=== PATIENT | male | born 1970 | race Caucasian/White ===

== ENCOUNTER 2016-07-30 12:52 | Emergency (ER) | payer OTHER ==
[2016-07-30] MEDS ORDERED: SODIUM CHLORIDE 0.9% 500 ML IV STA (13:03)
[2016-07-30] MEDS ORDERED: SODIUM CHLORIDE 0.9% 1,000 ML IV STA (13:03)
--- NOTE | 2016-07-30 13:07 | ED ---
Chest Pain HPI - General Stated Complaint: Chest Pain Time Seen by Provider: 07/30/16 12:52 Source: patient, EMS, RN notes reviewed Mode of arrival: EMS - History of Present Illness Initial Comments: This is a 46-year-old male with a history of a spontaneous pneumothorax in the past who states he quit smoking 15 years ago but still drinks 6-7 beers per day who is brought in by EMS for evaluation of the onset this morning about 8 AM of left-sided chest pain. Was described as being sharp stabbing but also throbbing in nature. He also complains of some left facial pain and left neck pain and numbness in the same area going down his left arm. He was given nitroglycerin as well as aspirin per EMS he has some relief in the pain from -05/19. He also has some blurry vision in his left eye with this. No reports of fevers chills nausea vomiting sweats no recent trauma that he did have a fall this past winter which she was evaluated at [facility] for. He denies any rhinorrhea cough sore throat earaches. He denies any focal weakness. Patient does also complain of sinus congestion again no fevers chills or sweats MD Complaint: chest pain, other - Related Data Home Medications Medication Instructions Recorded Confirmed Albuterol Inhaler [Ventolin Hfa 2 puff INHALATION RT-Q6H PRN 07/30/16 07/30/16 Inhaler] Aspirin 325 mg PO DAILY 07/30/16 07/30/16 Previous Rx's Medication Instructions Recorded Amoxicillin 500 mg PO Q8H #21 capsule 07/30/16 Ibuprofen [Motrin] 800 mg PO Q6HR PRN #20 tab 07/30/16 Magnesium 200 mg PO DAILY #14 tablet 07/30/16 Allergies Allergy/AdvReac Type Severity Reaction Status Date / Time No Known Allergies Allergy Verified 07/30/16 13:07 Review of Systems ROS Statement: Those systems with pertinent positive or pertinent negative responses have been documented in the HPI. ROS Other: All systems not noted in ROS Statement are negative. EKG Findings - EKG Results: EKG: interpreted by SURYA, sinus rhythm (EKG shows normal sinus rhythm of 77 IA interval 144 QRS duration 80 QT/QTC of 384/4:30 for this is a normal-appearing EKG), normal axis, normal QRS, normal ST/T, no acute changes General Exam - General Exam Comments Initial Comments: This is a well-developed well-nourished awake alert male he is a 3 General appearance: alert, anxious Head exam: Present: atraumatic, normocephalic, normal inspection Eye exam: Present: normal appearance, PERRL, EOMI. Absent: scleral icterus, conjunctival injection, periorbital swelling ENT exam: Present: mucous membranes moist, other (Boggy swollen nasal mucosa some tenderness over the left maxillary sinus) Neck exam: Present: normal inspection, tenderness (Tenderness over the left paraspinous muscles and left trapezius musculature.). Absent: meningismus, lymphadenopathy Respiratory exam: Present: normal lung sounds bilaterally, chest wall tenderness (Some tenderness palpation of left chest wall). Absent: respiratory distress, wheezes, rales, rhonchi, stridor Cardiovascular Exam: Present: regular rate, normal rhythm, normal heart sounds. Absent: systolic murmur, diastolic murmur, rubs, gallop, clicks GI/Abdominal exam: Present: soft, normal bowel sounds. Absent: distended, tenderness, guarding, rebound, rigid Extremities exam: Present: normal inspection, full ROM, normal capillary refill , other (Patient does demonstrate a fine tremor to both upper extremities.). Absent: tenderness, pedal edema, joint swelling, calf tenderness Back exam: Present: normal inspection Neurological exam: Present: alert, oriented X3, CN II-XII intact Psychiatric exam: Present: normal affect, normal mood Skin exam: Present: warm, dry, intact, normal color. 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 Patient's presentation is consistent with musculoskeletal pain also sinusitis patient be placed on appropriate medication he was informed his magnesium is at the low end of normal I will also place patient on a short course of magnesium supplement. Disposition Clinical Impression: Musculoskeletal pain, Chest wall pain, Sinusitis Disposition: HOME SELF-CARE Condition: Good Instructions: Costochondritis (ED), Musculoskeletal Pain (ED), Sinusitis (ED) Prescriptions: Amoxicillin 500 mg PO Q8H #21 capsule Ibuprofen [Motrin] 800 mg PO Q6HR PRN #20 tab PRN Reason: Pain Magnesium 200 mg PO DAILY #14 tablet
[2016-07-30 13:40] LABS: Basophils # (A) 0.1 k/uL (0-0.2); Basophils % (A) 1 %; CH 32.4; CHCM 34.5; Eosinophils # (A) 0.3 k/uL (0-0.7); Eosinophils % (A) 2 %; HCT 42.4 % (39.0-53.0); HDW 2.58; HGB 14.5 gm/dL (13.0-17.5); Luc # (Auto) 0.12; Luc % (Auto) 1; Lymphocytes % (A) 9 %; MCH 32.2 pg (25.0-35.0); MCHC 34.1 g/dL (31.0-37.0); MCV 94.5 fL (80.0-100.0); Mean Platelet Volume 6.3; Monocytes # (A) 0.4 k/uL (0-1.0); Monocytes % (A) 4 %; Neutrophils # (A) 9.2 k/uL (1.3-7.7); Neutrophils % (A) 83 %; RBC 4.48 m/uL (4.30-5.90); RDW 12.2 % (11.5-15.5); WBC (Perox) 11.07
[2016-07-30 13:45] LABS: ALT 33 U/L (21-72); AST 25 U/L (17-59); Alcohol <10 mg/dL; Alkaline Phosphatase 64 U/L (38-126); Amylase 103 U/L (30-110); Anion Gap 9 mmol/L; Blood Urea Nitrogen 16 mg/dL (9-20); Calcium 8.7 mg/dL (8.4-10.2); Carbon Dioxide 25 mmol/L (22-30); Chloride 108 mmol/L (98-107); Glucose 101 mg/dL (74-99); Magnesium 1.6 mg/dL (1.6-2.3); Non-African American GFR(MDRD) >60 (>60 ml/min/1.73 sqM); Potassium 4.9 mmol/L (3.5-5.1); Sodium 142 mmol/L (137-145); Total Bilirubin 0.8 mg/dL (0.2-1.3); Total Protein 7.1 g/dL (6.3-8.2)
--- NOTE | 2016-07-30 13:54 | XR ---
EXAMINATION TYPE: XR chest 2V DATE OF EXAM: 07/30/2016 1:47 PM COMPARISON: NONE HISTORY: History of left pneumothorax. Cough. TECHNIQUE: Frontal and lateral views of the chest are obtained. FINDINGS: There is no focal air space opacity, pleural effusion, or pneumothorax seen. There is pul monary hyperinflation with flattening of the diaphragms, biapical lucency, and tapering of the pulmon kailyn vascularity, compatible with underlying COPD. The cardiac silhouette size is within normal limits . The osseous structures are intact although there are central osteophytes and intervertebral disc space narrowing of the visualized thoracic spine. IMPRESSION: Radiographic sequela of COPD. No focal consolidation.
--- NOTE | 2016-07-30 14:01 | CT ---
EXAMINATION TYPE: CT brain maneine wo con DATE OF EXAM: 07/30/2016 1:47 PM COMPARISON: NONE HISTORY: Left sided facial numbness, chest pain CT DLP: 1298.1 mGycm. Automated Exposure Control for Dose Reduction was Utilized. TECHNIQUE: CT scan of the head and cervical spine are performed without contrast. FINDINGS: There is no acute intracranial hemorrhage, mass effect, or midline shift identified. The ventricles and sulci are within normal limits in size. The globes are intact and the visualized sin uses are clear. Mild mucosal thickening is evident within the ethmoid sinus. The remaining paranasal sinuses and mastoid air cells are well aerated. Cervical spine is visualized in its entirety from C1 through upper thoracic levels and demonstrates s atisfactory alignment without evidence of acute fracture or dislocation. Prevertebral soft tissue ap pears within normal limits. The C1-C2 articulation is unremarkable. Incidental noted is made of elkin pical pleural-parenchymal scarring. IMPRESSION: 1. There is no acute fracture or dislocation evident in the cervical spine. 2. No acute intracranial hemorrhage, mass effect, or midline shift is seen.
[2016-07-30 15:07] VITALS: BP 127/77; PULSE 85; RESP 16; TEMP 98.5
== END 2016-07-30 15:09 | disposition home or self-care (01) ==
LOC: EC 12:52 → SUPCPDRO 12:52 → EC 15:09
DX: R07.89 Other chest pain (principal); J32.9 Chronic sinusitis, unspecified; M54.2 Cervicalgia; Z79.82 Long term (current) use of aspirin
CPT/HCPCS: 36415; 70450; 71020; 72125; 80053; 80320; 82150; 82550; 82553; 83690; 83735; 85025; 85379; 93005; 99285

== ENCOUNTER → 2023-10-15 | Outpatient (CLI) | payer OTHER ==
[2023-10-15 12:29] VITALS: BP 132/68; PULSE 75; RESP 16; TEMP 97.3
--- NOTE | 2023-10-15 13:47 | XR ---
EXAMINATION TYPE: XR thoracic spine 3V DATE OF EXAM: 10/15/2023 COMPARISON: NONE HISTORY: 53-year-old male M51.34, chronic chest pain primarily on the left TECHNIQUE: 3 views FINDINGS: Mild degenerative disc disease throughout the visualized mid and lower thoracic spine. Vert ebral body heights are preserved and alignment is maintained. There is slight levoconvex curvature al kendrick the lower third thoracic spine. Osteopenia. 12 rib-bearing thoracic vertebral bodies. All pedicle s are visualized. IMPRESSION: Mild multilevel degenerative disc disease. Slight levoconvex curvature along the lower th ird thoracic spine. No vertebral compression collapse or malalignment.
--- NOTE | 2023-10-15 15:05 | P.PAINPG ---
Objective - Vital Signs Vital signs: Intake & Output 10/14/23 10/15/23 10/15/23 18:59 06:59 18:59 Weight 70.307 kg PQRS Measure Charge Sheet Comment: HISTORY OF PRESENT ILLNESS: A 53 yr old male as a referral from Dr Eusebio Espinoza presents today w severe and chronic L rib pain secondary to DDD, spondylosis and facet arthropathy without myelopathy for evaluation. Pt states pain level is provoked at 10 /10 in intensity, intermittent, localized in the L lateral axilla midline, predominantly axial, sharp in character w occasional shooting pain towards the ribs and jaw. Pain has no provocation. Pain is alleviated by heat, ice, medications (Ibu, Tyl), topical Icy-Hot, repositioning and rest . Oswestry axial pain score at 13. PMH: OA, Asthma PSH: L Spontaneous Lung Collapse w Chest Tube Placement (1985) SH: +Tobacco use, Daily ETOH use, No illicit drug use FH: Non contributory All: See list Meds: See list REVIEW OF ORGAN SYSTEMS: CONSTITUTIONAL: No fevers or chills. No recent weight loss. NEUROLOGICAL: + numbness and tingling along the distal extremities. No seizure disorders or headaches. MUSCULOSKELETAL: + pain PSYCHIATRIC: Denies current depression or suicidal thoughts. Physical Examinations : Constitutional : Cooperative , not in acute distress . Neurologic : Cranial nerve II to XII intact. No focal neurological deficits. Psychiatric : alert & oriented x 3. Matching mood & appropriate affect. Judgment & insight intact. Musculoskeletal : Cervical Spine Motor strength in the deltoid and biceps: Normal right side. Normal Left side Motor strength biceps and the wrist extensors: Normal right side . Normal left side Motor strength in the triceps muscle: Normal right side. Normal left side Deep tendon reflexes: Normal at the biceps. Normal at Brachioradialis. Normal at triceps Vertebral body tenderness to deep palpation over Cervical facet loading test: positive bilaterally Spurling test: positive bilaterally Neck distraction test: positive bilaterally Mami sign: positive bilaterally Thoracic spine Philip Test Positive L T5-T8 Lumbar spine Motor strength lower extremities ,thigh and legs 5/5 Right side , 5/5 Left side Deep tendon reflexes : Normal Knee Jerk. Normal Ankle Jerk Vertebral body tenderness over Philip Test positive Lumbar facet Loading Test: positive Right / positive Left Range of motion of the lumbar spine Flexion 30 degrees, extension 10 degrees Straight Leg Raise test: Left/ Right positive at degrees Edouard test: positive right / positive left. Severe tenderness over the Sacroiliac joint on the Right / Left sides Gaenslen test: positive bilaterally Seated flexion test: positive bilaterally. Sacral spine : Severe tenderness over the Sacroiliac joint: right side / left side Range of motion: Flexion of the lumbar spine <60 degrees Range of motion: Extension of the lumbar spine <20 degrees Gaenslen's Test positive Edouard test: positive right side / left side Thigh Thrust Test Sacral Thrust Test Imaging: CT non contrast of the thorax from 08/27/23 reviewed Assessment/ Plan : Thoracic DDD Recommendation of PT x 6 wks M51.34 and thoracic x ray. All questions answered. I have spent greater than 30 minutes on patient care today. Dr Burt was available by phone for the evaluation of this patient. The time was used to review the medical records including relevant urine studies and Prescription history (MAPs), review of the available imaging, evaluation and examination of the patient, coordination of care with the medical staff and if applicable referring physicians, as well as creation of the medical record - Pain Location Left Upper Pharmacological Interventions: PRN Medication PQRS Narrative: Smoking Status Former smoker Home Medications: Ambulatory Orders Albuterol Inhaler [Ventolin Hfa Inhaler] 2 puff INHALATION RT-Q6H PRN 07/30/16 Amoxicillin 500 mg PO Q8H #21 capsule 07/30/16 Aspirin 325 mg PO DAILY 07/30/16 Ibuprofen [Motrin] 800 mg PO Q6HR PRN #20 tab 07/30/16 Magnesium 200 mg PO DAILY #14 tablet 07/30/16 Controlled Substance Measures - Controlled Substance Measures Is patient prescribed a controlled substance at discharge?: No
== END | disposition home or self-care (01) ==
LOC: PNWHC3 11:59
PROVIDERS: ATTEND Specialist
DX: M51.34 Other intervertebral disc degeneration, thoracic region (principal); M47.814 Spondylosis without myelopathy or radiculopathy, thoracic region; M43.8X4 Other specified deforming dorsopathies, thoracic region; R07.81 Pleurodynia; R07.9 Chest pain, unspecified; Z87.891 Personal history of nicotine dependence
CPT/HCPCS: 72070; 99211

== ENCOUNTER → 2023-11-05 | Outpatient (CLI) | payer OTHER ==
--- NOTE | 2023-11-05 17:11 | MR ---
EXAMINATION TYPE: MR thoracic spine wo con DATE OF EXAM: 11/05/2023 4:33 PM CLINICAL INDICATION:Male, 53 years old with history of M51.34 OTHER INTERVERTEBRAL DISC DEGENERATION, THO; PHH, Thoracic D.D.D. chronic pain. COMPARISON: 08/27/2023. TECHNIQUE: Multi planar, multi sequence imaging was performed utilizing: T1-weighted, short-tau inver josé recovery and T2-weighted of the thoracic spine. IV Contrast: cc (none if empty) FINDINGS: Alignment: Alignment is within normal limits. Vertebral bodies have preserved heights. Spinal cord: Spinal cord is within normal limits for signal. Discs: Intervertebral disc signal is maintained. No evidence of significant spinal canal or neural fo raminal stenosis. There is no evidence of extradural defects or central spinal canal narrowing at any thoracic vertebral body level Osseous structures: Multiple high T1/T2 signal signal lesions throughout the osseous structures no co rrelate on CT imaging. Examples include T2 vertebral body measuring 14 mm, T9 measuring 15 mm and an adjacent one measuring 9 mm and another smaller measuring 4 mm. T11 vertebral body measuring measurin g 9 mm. No abnormal bony edema on inversion recovery sequences. Multilevel osteophyte formation and facet roverto nt arthropathy. Scattered disc space narrowing. IMPRESSION: 1. No evidence for significant spinal canal or neural foraminal stenosis. 2. Multiple high T1/T2 signal lesions possibly representing atypical vertebral body hemangiomas vers us other etiologies such as malignancy. Correlate with any history of malignancy.
== END | disposition home or self-care (01) ==
LOC: RADMRIMAIN 15:04
PROVIDERS: ATTEND Specialist
DX: M51.34 Other intervertebral disc degeneration, thoracic region (principal); G89.29 Other chronic pain
CPT/HCPCS: 72146

== ENCOUNTER → 2023-11-26 | Outpatient (CLI) | payer OTHER | LOC: PNWHC3 12:15 | PROVIDERS: ATTEND Specialist | DX: M54.16 Radiculopathy, lumbar region | CPT/HCPCS: 99211 ==

== ENCOUNTER 2024-03-31 04:03 | Emergency (ER) | payer OTHER ==
--- NOTE | 2024-03-31 04:04 | ED ---
Recheck HPI - General Stated Complaint: Lower extremity numbness Time Seen by Provider: 03/31/24 04:04 Source: RN notes reviewed, old records reviewed Limitations: no limitations - History of Present Illness Initial Comments: This is a 53-year-old male presents from home for weakness. Some decreased act ivities of daily living lower extremity weakness and evidence of dehydration during conversation. Patient has no travel history no sick contacts no other noted complaints here in the emergency department MD Complaint: other (Lower extremity weakness) -: days(s) Symptoms Since Prior Visit: no new symptoms Context: planned re-check Associated Symptoms: none Treatments Prior to Arrival: other (0) - Related Data Home Medications Medication Instructions Recorded Confirmed Albuterol Inhaler [Ventolin Hfa 2 puff INHALATION RT-Q6H PRN 07/30/16 10/15/23 Inhaler] Aspirin 325 mg PO DAILY 07/30/16 10/15/23 Previous Rx's Medication Instructions Recorded Amoxicillin 500 mg PO Q8H #21 capsule 07/30/16 Ibuprofen [Motrin] 800 mg PO Q6HR PRN #20 tab 07/30/16 Magnesium 200 mg PO DAILY #14 tablet 07/30/16 Allergies Allergy/AdvReac Type Severity Reaction Status Date / Time No Known Allergies Allergy Verified 10/15/23 12:09 Review of Systems ROS Statement: Those systems with pertinent positive or pertinent negative responses have been documented in the HPI. ROS Other: All systems not noted in ROS Statement are negative. Past Medical History Past Medical History: Chest Pain / Angina History of Any Multi-Drug Resistant Organisms: None Reported Past Surgical History: Hernia Repair Smoking Status: Unknown if ever smoked General Exam General appearance: alert, in no apparent distress Head exam: Present: atraumatic, normocephalic, normal inspection Eye exam: Present: normal appearance, PERRL, EOMI. Absent: scleral icterus, conjunctival injection, periorbital swelling ENT exam: Present: normal exam, mucous membranes moist Neck exam: Present: normal inspection. Absent: tenderness, meningismus, lymphadenopathy Respiratory exam: Present: normal lung sounds bilaterally. Absent: respiratory distress, wheezes, rales, rhonchi, stridor Cardiovascular Exam: Present: regular rate, normal rhythm, normal heart sounds. Absent: systolic murmur, diastolic murmur, rubs, gallop, clicks GI/Abdominal exam: Present: soft, normal bowel sounds. Absent: distended, tenderness, guarding, rebound, rigid Extremities exam: Present: normal inspection, full ROM, normal capillary refill. Absent: tenderness, pedal edema, joint swelling, calf tenderness Back exam: Present: normal inspection Neurological exam: Present: alert, oriented X3, CN II-XII intact Psychiatric exam: Present: normal affect, normal mood Skin exam: Present: warm, dry, intact, normal color. Absent: rash Course Vital Signs 03/31/24 03/31/24 04:05 06:50 Temperature 98.2 F Pulse Rate 95 92 Respiratory 18 18 Rate Blood Pressure 132/84 129/84 O2 Sat by Pulse 95 95 Oximetry - Reevaluation(s) Reevaluation #1: 03/31/24 04:24 Records reviewed Reevaluation #2: 03/31/24 Patient symptoms improved Reevaluation #3: 03/31/24 Patient informed of results questions answered Reevaluation #4: Was pt. sent in by a medical professional or institution (, PA, [employer], urgent care, hospital, or snf...) When possible be specific @ -no Did you speak to anyone other than the patient for history (EMS, parent, family, police, friend...)? What history was obtained from this source @ -no Did you review nursing and triage notes (agree or disagree)? Why? @ -agree Are old charts reviewed (outside hosp., previous admission, EMS record, old EKG, old radiological studies, urgent care reports/EKG's, snf records)? Report findings @ -yes Differential Diagnosis (chest pain, altered mental status, abdominal pain women, abdominal pain men, vaginal bleeding, weakness, fever, dyspnea, syncope, headache, dizziness, GI bleed, back pain, seizure, CVA, palpatations, mental health, musculoskeletal)? @ -prior EKG interpreted by me (3pts min.). @ -yes X-rays interpreted by me (1pt min.). @ -no CT interpreted by me (1pt min.). @ -yes negative for acute disease U/S interpreted by me (1pt. min.). @ -no What testing was considered but not performed or refused? (CT, X-rays, U/S, labs)? Why? @ -none What meds were considered but not given or refused? Why? @ -none Did you discuss the management of the patient with other professionals (professionals i.e. DrFrance, PA, [employer], lab, RT, psych nurse, protective services social worker, patient accounting representative, teacher, school resource officer, case management associate)? Give summary @ -no Was smoking cessation discussed for >3mins.? @ -no Was critical care preformed (if so, how long)? @ -no Were there social determinants of health that impacted care today? How? (H omelessness, low income, unemployed, alcoholism, drug addiction, transportation, low edu. Level, literacy, decrease access to med. care, nursing home, rehab)? @ -none Was there de-escalation of care discussed even if they declined (Discuss DNR or withdrawal of care, Hospice)? DNR status @ -no What co-morbidities impacted this encounter? (DM, HTN, Smoking, COPD, CAD, Cancer, CVA, ARF, Chemo, Hep., AIDS, mental health diagnosis, sleep apnea, morbid obesity)? @ -none Was patient admitted / discharged? Hospital course, mention meds given and route, prescriptions, significant lab abnormalities, going to OR and other pertinent info. @ - 53 male to ER with lower extremity numbness and tingling. No current back pain no recent trauma. No loss of bowel or bladder. Patient is complaining of lower extremity weakness although symptoms are improved patient can be discharged home Discharge Undiagnosed new problem with uncertain prognosis? @ -no Drug Therapy requiring intensive monitoring for toxicity (Heparin, Nitro, Insulin, Cardizem)? @ -no Were any procedures done? @ -no Diagnosis/symptom? @ -Weakness lower extremity weakness Acute, or Chronic, or Acute on Chronic? @ -Acute Uncomplicated (without systemic symptoms) or Complicated (systemic symptoms)? @ -Complicated Side effects of treatment? @ -no Exacerbation, Progression, or Severe Exacerbation? @ -exacerbation Poses a threat to life or bodily function? How? (Chest pain, [place], [place], pneumonia, PE, COPD, DKA, ARF, appy, cholecystitis, CVA, Diverticulitis, Homicidal, Suicidal, threat to staff... and all critical care pts) @ -no Reevaluation #5: Differential Weakness: Hypoglycemia, shock, sepsis, hyponatremia, anemia, infection, IL, ETOH, adverse medicine reaction, overdose, stroke, this is not meant to be an all-inclusive list. Medical Decision Making - Medical Decision Making 53 male to ER with lower extremity numbness and tingling. No current back pain no recent trauma. No loss of bowel or bladder. Patient is complaining of lower extremity weakness although symptoms are improved patient can be discharged home - Lab Data Result diagrams: 03/31/24 04:17 03/31/24 04:17 Lab Results 03/31/24 03/31/24 03/31/24 Range/Units 04:17 04:17 04:17 WBC 10.8 H (3.8-10.6) k/uL RBC 4.85 (4.30-5.90) m/uL Hgb 16.1 (13.0-17.5) gm/dL Hct 45.2 (39.0-53.0) % MCV 93.2 (80.0-100.0) fL MCH 33.2 (25.0-35.0) pg MCHC 35.7 (31.0-37.0) g/dL RDW 12.1 (11.5-15.5) % Plt Count 301 (150-450) k/uL MPV 6.8 Neutrophils % 73 % Lymphocytes % 18 % Monocytes % 4 % Eosinophils % 4 % Basophils % 0 % Neutrophils # 7.9 H (1.3-7.7) k/uL Lymphocytes # 1.9 (1.0-4.8) k/uL Monocytes # 0.4 (0-1.0) k/uL Eosinophils # 0.4 (0-0.7) k/uL Basophils # 0.0 (0-0.2) k/uL PT 10.3 (10.0-12.5) sec INR 0.9 (<1.2) APTT 25.6 (22.0-30.0) sec Sodium 136 L (137-145) mmol/L Potassium 4.3 (3.5-5.1) mmol/L Chloride 107 (98-107) mmol/L Carbon Dioxide 17 L (22-30) mmol/L Anion Gap 12 mmol/L BUN 8 L (9-20) mg/dL Creatinine 0.70 (0.66-1.25) mg/dL Est GFR (CKD-EPI)AfAm >90 (>60 ml/min/1.73 sqM) Est GFR (CKD-EPI)NonAf >90 (>60 ml/min/1.73 sqM) Glucose 106 H (74-99) mg/dL Lactic Ac Sepsis Rflx Plasma Lactic Acid Tim (0.7-2.0) mmol/L Calcium 9.0 (8.4-10.2) mg/dL Phosphorus 3.5 (2.5-4.5) mg/dL Magnesium 1.8 (1.6-2.3) mg/dL Total Bilirubin 0.6 (0.2-1.3) mg/dL AST 30 (17-59) U/L ALT 28 (4-49) U/L Alkaline Phosphatase 68 (38-126) U/L Troponin I (0.000-0.034) ng/mL NT-Pro-B Natriuret Pep <20 pg/mL Total Protein 7.2 (6.3-8.2) g/dL Albumin 4.4 (3.5-5.0) g/dL Urine Color Urine Appearance (Clear) Urine pH (5.0-8.0) Ur Specific [place] (1.001-1.035) Urine Protein (Negative) Urine Glucose (UA) (Negative) Urine Ketones (Negative) Urine Blood (Negative) Urine Nitrite (Negative) Urine Bilirubin (Negative) Urine Urobilinogen (<2.0) mg/dL Ur Leukocyte Esterase (Negative) 03/31/24 03/31/24 03/31/24 Range/Units 04:17 04:17 04:35 WBC (3.8-10.6) k/uL RBC (4.30-5.90) m/uL Hgb (13.0-17.5) gm/dL Hct (39.0-53.0) % MCV (80.0-100.0) fL MCH (25.0-35.0) pg MCHC (31.0-37.0) g/dL RDW (11.5-15.5) % Plt Count (150-450) k/uL MPV Neutrophils % % Lymphocytes % % Monocytes % % Eosinophils % % Basophils % % Neutrophils # (1.3-7.7) k/uL Lymphocytes # (1.0-4.8) k/uL Monocytes # (0-1.0) k/uL Eosinophils # (0-0.7) k/uL Basophils # (0-0.2) k/uL PT (10.0-12.5) sec INR (<1.2) APTT (22.0-30.0) sec Sodium (137-145) mmol/L Potassium (3.5-5.1) mmol/L Chloride (98-107) mmol/L Carbon Dioxide (22-30) mmol/L Anion Gap mmol/L BUN (9-20) mg/dL Creatinine (0.66-1.25) mg/dL Est GFR (CKD-EPI)AfAm (>60 ml/min/1.73 sqM) Est GFR (CKD-EPI)NonAf (>60 ml/min/1.73 sqM) Glucose (74-99) mg/dL Lactic Ac Sepsis Rflx Plasma Lactic Acid Tim 2.2 H* (0.7-2.0) mmol/L Calcium (8.4-10.2) mg/dL Phosphorus (2.5-4.5) mg/dL Magnesium (1.6-2.3) mg/dL Total Bilirubin (0.2-1.3) mg/dL AST (17-59) U/L ALT (4-49) U/L Alkaline Phosphatase (38-126) U/L Troponin I <0.012 (0.000-0.034) ng/mL NT-Pro-B Natriuret Pep pg/mL Total Protein (6.3-8.2) g/dL Albumin (3.5-5.0) g/dL Urine Color Colorless Urine Appearance Clear (Clear) Urine pH 5.5 (5.0-8.0) Ur Specific [place] 1.002 (1.001-1.035) Urine Protein Negative (Negative) Urine Glucose (UA) Negative (Negative) Urine Ketones Negative (Negative) Urine Blood Negative (Negative) Urine Nitrite Negative (Negative) Urine Bilirubin Negative (Negative) Urine Urobilinogen <2.0 (<2.0) mg/dL Ur Leukocyte Esterase Negative (Negative) 03/31/24 Range/Units 05:05 WBC (3.8-10.6) k/uL RBC (4.30-5.90) m/uL Hgb (13.0-17.5) gm/dL Hct (39.0-53.0) % MCV (80.0-100.0) fL MCH (25.0-35.0) pg MCHC (31.0-37.0) g/dL RDW (11.5-15.5) % Plt Count (150-450) k/uL MPV Neutrophils % % Lymphocytes % % Monocytes % % Eosinophils % % Basophils % % Neutrophils # (1.3-7.7) k/uL Lymphocytes # (1.0-4.8) k/uL Monocytes # (0-1.0) k/uL Eosinophils # (0-0.7) k/uL Basophils # (0-0.2) k/uL PT (10.0-12.5) sec INR (<1.2) APTT (22.0-30.0) sec Sodium (137-145) mmol/L Potassium (3.5-5.1) mmol/L Chloride (98-107) mmol/L Carbon Dioxide (22-30) mmol/L Anion Gap mmol/L BUN (9-20) mg/dL Creatinine (0.66-1.25) mg/dL Est GFR (CKD-EPI)AfAm (>60 ml/min/1.73 sqM) Est GFR (CKD-EPI)NonAf (>60 ml/min/1.73 sqM) Glucose (74-99) mg/dL Lactic Ac Sepsis Rflx Y Plasma Lactic Acid Tim (0.7-2.0) mmol/L Calcium (8.4-10.2) mg/dL Phosphorus (2.5-4.5) mg/dL Magnesium (1.6-2.3) mg/dL Total Bilirubin (0.2-1.3) mg/dL AST (17-59) U/L ALT (4-49) U/L Alkaline Phosphatase (38-126) U/L Troponin I (0.000-0.034) ng/mL NT-Pro-B Natriuret Pep pg/mL Total Protein (6.3-8.2) g/dL Albumin (3.5-5.0) g/dL Urine Color Urine Appearance (Clear) Urine pH (5.0-8.0) Ur Specific [place] (1.001-1.035) Urine Protein (Negative) Urine Glucose (UA) (Negative) Urine Ketones (Negative) Urine Blood (Negative) Urine Nitrite (Negative) Urine Bilirubin (Negative) Urine Urobilinogen (<2.0) mg/dL Ur Leukocyte Esterase (Negative) - EKG Data -: EKG Interpreted by Me (EKG is sinus 94 IN 153 QRS 89 QTc 404) - Radiology Data Radiology results: report reviewed (CT LS spine is negative for acute disease), image reviewed Disposition Clinical Impression: Weakness Disposition: HOME SELF-CARE Condition: Good Instructions (If sedation given, give patient instructions): Lumbar Radiculopathy (ED), Weakness (ED) Is patient prescribed a controlled substance at d/c from ED?: No Referrals: Eusebio Espinoza MD [Primary Care Provider] - 1-2 days Time of Disposition: 06:00
[2024-03-31 04:10] VITALS: RESP 18; TEMP 98.2
[2024-03-31 04:36] LABS: Basophils % (A) 0 %; Eosinophils # (A) 0.4 k/uL (0-0.7); Eosinophils % (A) 4 %; HCT 45.2 % (39.0-53.0); HGB 16.1 gm/dL (13.0-17.5); Lymphocytes # (A) 1.9 k/uL (1.0-4.8); Lymphocytes % (A) 18 %; MCH 33.2 pg (25.0-35.0); MCHC 35.7 g/dL (31.0-37.0); MCV 93.2 fL (80.0-100.0); Mean Platelet Volume 6.8; Monocytes # (A) 0.4 k/uL (0-1.0); Monocytes % (A) 4 %; Neutrophils # (A) 7.9 k/uL (1.3-7.7); Neutrophils % (A) 73 %; Platelet Count 301 k/uL (150-450); RBC 4.85 m/uL (4.30-5.90); RDW 12.1 % (11.5-15.5); WBC 10.8 k/uL (3.8-10.6)
[2024-03-31 04:44] LABS: Appearance,Urine Clear (Clear); Bilirubin,Urine Negative (Negative); Blood,Urine Negative (Negative); Color,Urine Colorless; Glucose,Urine (UA) Negative (Negative); Ketones,Urine Negative (Negative); Leukocyte Esterase,Urine Negative (Negative); Nitrite,Urine Negative (Negative); PH, Urine 5.5 (5.0-8.0); Protein,Urine Negative (Negative); Specific Gravity,Urine 1.002 (1.001-1.035); Urobilinogen,Urine <2.0 mg/dL (<2.0)
[2024-03-31 04:46] LABS: INR 0.9 (<1.2); Partial Thromboplastin Time 25.6 sec (22.0-30.0); Prothrombin Time 10.3 sec (10.0-12.5)
[2024-03-31 04:48] LABS: ALT 28 U/L (4-49); AST 30 U/L (17-59); African American GFR (CKD) >90 (>60 ml/min/1.73 sqM); Albumin 4.4 g/dL (3.5-5.0); Alkaline Phosphatase 68 U/L (38-126); Anion Gap 12 mmol/L; Blood Urea Nitrogen 8 mg/dL (9-20); Carbon Dioxide 17 mmol/L (22-30); Chloride 107 mmol/L (98-107); Glucose 106 mg/dL (74-99); Magnesium 1.8 mg/dL (1.6-2.3); Non-African American GFR(CKD) >90 (>60 ml/min/1.73 sqM); Phosphorus 3.5 mg/dL (2.5-4.5); Potassium 4.3 mmol/L (3.5-5.1); Sodium 136 mmol/L (137-145); Total Bilirubin 0.6 mg/dL (0.2-1.3); Total Protein 7.2 g/dL (6.3-8.2)
[2024-03-31] MEDS: SODIUM CHLORIDE 0.9% 500 ML 500 ML IV STA (04:51)
[2024-03-31] MEDS: SODIUM CHLORIDE 0.9% 1,000 ML IV STA ×2 (04:51→05:51)
[2024-03-31 04:57] LABS: NT-Pro-B-Type Natriuretic Pept <20 pg/mL
[2024-03-31] MEDS: MORPHINE SULFATE 4 MG/ML SYRINGE IVP STA (05:50)
[2024-03-31] MEDS: KETOROLAC 15 MG/ML 1 ML VIAL IVP STA (05:50)
[2024-03-31] MEDS: DEXAMETHASONE SOD PHOSPHATE 10 MG/ML 1 ML VIAL IVP STA (05:50)
--- NOTE | 2024-03-31 06:13 | CT ---
EXAM: CT Lumbar Spine Without Intravenous Contrast CLINICAL HISTORY: ITS.REASON CT Reason: pain TECHNIQUE: Axial computed tomography images of the lumbar spine without intravenous contrast. CTDI is 18.3 mGy and DLP is 600 mGy-cm. This CT exam was performed using one or more of the following dose reduction techniques: automated exposure control, adjustment of the mA and/or kV according to patient size, and/or use of iterative reconstruction technique. COMPARISON: No relevant prior studies available. FINDINGS: Vertebrae: Unremarkable. No acute fracture. Discs/spinal canal/neural foramina: Advanced disc degeneration at L5-S1. There is a moderate right and mild left L5-S1 neural foraminal stenosis. No acute findings. No spinal canal stenosis. Soft tissues: Hepatic steatosis. IMPRESSION: No evidence of acute lumbar spine pathology. There is a moderate right L5-S1 neural foraminal stenosis with mild impingement of the right L5 nerve root ganglion.
[2024-03-31 06:52] VITALS: BP 129/84; PULSE 92
== END 2024-03-31 06:52 | disposition home or self-care (01) ==
LOC: EC 04:03
DX: R53.1 Weakness (principal)
CPT/HCPCS: 36415; 93005; 83880; 80053; 83605; 83735; 84100; 84484; 85025; 85610; 85730; 81003; 72131; 99284; 96374; 96375; 96361; J2270; J1100; J1885

== ENCOUNTER → 2024-05-12 | Outpatient (CLI) | payer OTHER ==
--- NOTE | 2024-05-13 09:19 | MR ---
EXAMINATION TYPE: MR thoracic spine wo/w con DATE OF EXAM: 05/12/2024 7:52 PM COMPARISON: MRI 11/05/2023, 08/27/2023 CT. 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 IV Contrast: 6.5 mL Gadobutrol (None, if empty) FINDINGS: Alignment: Stable alignment which is within normal limits. The vertebral bodies maintain appropriate height. Spinal cord: Spinal cord is within normal limits for signal. Discs: Intervertebral disc signal is maintained. No evidence of significant spinal canal or neural fo raminal stenosis. There is no evidence of extradural defects or central spinal canal narrowing at any thoracic vertebral body level Osseous structures: Similar-appearing scattered high T1/T2 signal signal lesions throughout the osseo us structures no correlate on CT imaging. Again, Examples include T2 vertebral body measuring 14 mm, T9 measuring 15 mm and an adjacent one measuring 9 mm and another smaller measuring 4 mm. T11 vertebr al body measuring measuring 9 mm. No significant enhancement within these lesions. No abnormal bony edema on inversion recovery sequences. Multilevel osteophyte formation and facet roverto nt arthropathy. Scattered disc space narrowing. IMPRESSION: 1. No evidence for significant spinal canal or neural foraminal stenosis. 2. Multiple high T1/T2 signal lesions possibly representing atypical vertebral body hemangiomas give n stability end appearance on CT imaging. [facility], , 05/13/2024 9:16 AM
== END | disposition home or self-care (01) ==
LOC: RADMRIMAIN 18:24
PROVIDERS: ATTEND Neurological Surgery
DX: M54.6 Pain in thoracic spine (principal); D18.09 Hemangioma of other sites; G89.29 Other chronic pain
CPT/HCPCS: 72157; A9585

== ENCOUNTER → 2024-10-16 | Outpatient (CLI) | payer OTHER ==
--- NOTE | 2024-10-16 22:37 | MR ---
EXAMINATION TYPE: MR cervical spine wo con DATE OF EXAM: 10/16/2024 9:13 PM COMPARISON: 05/19/2024 CLINICAL INDICATION: Male, 54 years old with history of M47.22, neck pain radiating down both arms TECHNIQUE: Multiplanar multiecho imaging on a 3.0 Jolly magnet is performed through the cervical spin e. IV Contrast: mL (None, if empty) FINDINGS: The craniovertebral junction is normal. Vertebral body alignment is normal. C7-T1: No focal disc herniation or significant disc bulge is evident. No spinal canal stenosis or n eural foraminal stenosis is present. C6-7: No focal disc herniation or significant disc bulge is evident. No spinal canal stenosis or doc ral foraminal stenosis is present. C5-6: No focal disc herniation or significant disc bulge is evident. No spinal canal stenosis or doc ral foraminal stenosis is present. C4-5: No focal disc herniation or significant disc bulge is evident. No spinal canal stenosis or doc ral foraminal stenosis is present. C3-4: No focal disc herniation or significant disc bulge is evident. No spinal canal stenosis or doc ral foraminal stenosis is present. C2-3: No focal disc herniation or significant disc bulge is evident. No spinal canal stenosis or doc ral foraminal stenosis is present. No significant interval change from the comparison study. There is a T2 hemangioma, present previously. IMPRESSION: 1. No suspicious acute changes MRI cervical spine [facility], , 10/16/2024 10:34 PM
== END | disposition home or self-care (01) ==
LOC: RADMRIMAIN 20:40
PROVIDERS: ATTEND Emergency Medicine
DX: M47.22 Other spondylosis with radiculopathy, cervical region (principal)
CPT/HCPCS: 72141